=== PATIENT | female | born 1930 | race Caucasian/White ===

== ENCOUNTER 2018-05-17 19:52 | Observation (INO) | payer MEDICARE, OTHER ==
[2018-05-17] MEDS ORDERED: MAG HYDROX/ALUMINUM HYD/SIMETH 30 ML UDC PO ONE (20:06)
--- NOTE | 2018-05-17 20:43 | ED Physician Documentation ---
Fall - HISTORIAN Historian: patient, spouse, paramedics - [facility] Stated Complaint: fall Chief Complaint: Fall Additional Information: Leaving [employer] and tripped over curb. L forehead hit the concrete and she landed in a prone position. Thinks she may have passed out for just a moment at the time of impact. Bystanders indicated she did not lose consciousness. Several recent falls she thinks related to her Parkinson's disease. 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 Has lac on forehead, skin tear right hand. Denies other injuries. Occurred just prior to arrival in ER. No other modifying factors or associated signs. - ROS CONST: no problems - PAST HX Past History: other (Parkinson's, HLD, anxiety, osteoporosis, HTN; CABG, Appy, Hysterectomy, cholecystectomy) Allergies/Adverse Reactions: Allergies Allergy/AdvReac Type Severity Reaction Status Date / Time Penicillins Allergy Intermediate Rash Verified 05/17/18 21:26 Home Medications: Ambulatory Orders Medication Instructions Recorded Alendronate Sodium [Fosamax] 70 mg PO WEEK 05/17/18 Cholecalciferol [Vitamin D-3] 1,000 unit PO D 05/17/18 Furosemide [Lasix] 40 mg PO D 05/17/18 Latanoprost [Xalatan] 1 drop EACHEYE D 05/17/18 Levothyroxine Sodium 75 mg PO D 05/17/18 Metoprolol Succinate [Toprol XL] 25 mg PO D 05/17/18 Nitroglycerin [Nitrostat] 0.4 mg SL PRN PRN 05/17/18 Omeprazole 20 mg PO D 05/17/18 Pramipexole Di-HCl [Pramipexole ER] 0.75 mg PO TID 05/17/18 Timolol Maleate [Timoptic] 1 drop DT D 05/17/18 Venlafaxine HCl [Venlafaxine HCl 150 mg PO D 05/17/18 ER] Warfarin Sodium [Coumadin] 5 mg PO D 05/17/18 - SOCIAL HX Smoking History: non-smoker - FAMILY HX Family History: no significant history - VITAL SIGNS Vital Signs: Vital Signs Temp Pulse Resp BP Pulse Ox 98.4 F 67 20 116/57 96 05/17/18 19:53 05/17/18 19:53 05/17/18 19:53 05/17/18 19:53 05/17/18 19:53 - REVIEWED ASSESSMENTS Nursing Assessment Reviewed: Yes Vitals Reviewed: Yes Progress - Progress Progress: Report Submission Date: May 17, 2018 8:27:32 PM CDT Patient Study Name: YOLY GARNER Date: May 17, 2018 8:11:05 PM CDT Modality Type: CT\SR Gender: F Description: CT BRAIN W/O CONTRAST : 32 Institution: [facility] Physician: KOBY VANG Computed tomography head without contrast History: Left orbit laceration Findings: Transverse brain sections are obtained without contrast revealing a left malar and preseptal periorbital contusion and laceration without globe rupture or orbital hemorrhage. Lens replacements are observed. 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 Moderate brain atrophy is present. There is no intracranial hemorrhage or acute loss of rodriguez- white differentiation. The skull and visualized facial bones are intact. Impression: 1. Left facial soft tissue contusion. 2. 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 3. Brain atrophy. Electronically signed on May 17, 2018 8:27:32 PM CDT by: Edison Leon Report Submission Date: May 17, 2018 9:53:44 PM CDT Patient Study Name: YOLY GARNER Date: May 17, 2018 9:30:20 PM CDT Modality Type: CT\SR Gender: F Description: CT C-SPINE W/O CONTRAS : 31 Institution: [facility] Physician: KOBY VANG Computed tomography cervical spine without contrast History: Neck pain after fall Findings: Transverse cervical spine sections are obtained without contrast. Pulmonary edema, air trapping, and focal left upper lobe atelectasis or scar are observed. Advanced multilevel bilateral facet arthropathy is present producing degenerative anterolisthesis at C4-5. Advanced C5-6 and C6-7 degenerative disc disease is observed. Advanced anterior C1-2 arthropathy is present. There is no fracture or paraspinal swelling. Impression: 1. Advanced multilevel cervical spondylosis without fracture. 2. Pulmonary edema, air trapping, and minimal left upper lobe atelectasis or scar. Electronically signed on May 17, 2018 9:53:44 PM CDT by: Edison Leon ED Results Lab/Radiology - Orders Orders: ED Orders Category Date Time Status Apply ice to affected area NOW Care 05/17/18 19:[address] BRAIN W/O CONTRAST Stat Exams 05/17/18 Taken CBC/PLATELET/DIFF Routine Lab 05/17/18 Ordered CMP [CMP] Routine Lab 05/17/18 Ordered PTINR [PT-INR] Routine Lab 05/17/18 Ordered UA [URINALYSIS] Routine Lab 05/17/18 Ordered Mag Hydrox/Aluminum Hyd/Simeth [Mylanta] Med 05/17/18 20:06 Discontinued 30 ml PO NOW ONE Fall Physical Exam - Physical Exam General Appearance: alert, moderate distress Head: trauma (2 cm lac above left eye brow, superficial with 2-3 mm avulsion of skin prosimally. Avulsion 3-4 mmf diameter distal to lacoozing blood) Neck: non-tender, trachea midline Eye: GRICELDA, EOMI, lids & conjunct. nml, subconjunctival hemorrhag (Left eye, medial canthus area) ENT: nml external inspection, no dental injury, airway nml (Mallampati 2) Resp/CVS: chest non-tender, breath sounds nml, heart sounds nml Abdomen: soft, normal bowel sounds Neuro: oriented x3, CN's nml as tested, sensation nml, motor nml, reflexes nml Skin: color nml (except as above), other (crescent shaped skin flap right dorsal hand, 4 cm in length, no bleeding) Back: normal inspection, no vertebral tenderness Extremities: atraumatic, pelvis stable, hips non-tender Joint: joints nml Discharge Clincal Impression: Fall Qualifiers: Encounter type: initial encounter Qualified Code(s): W19.XXXA - Unspecified fall, initial encounter Facial laceration Qualifiers: Encounter type: initial encounter Qualified Code(s): S01.81XA - Laceration without foreign body of other part of head, initial encounter Skin tear of right hand without complication Qualifiers: Encounter type: initial encounter Qualified Code(s): S61.411A - Laceration without foreign body of right hand, initial encounter Referrals: Primary Doctor,No [Primary Care Provider] - 2 Days Condition: Fair Disposition: ADMITTED INPATIENT Decision to Admit: [id number] Decision Time: 22:00
[2018-05-17 21:52] LABS: eGFR (Non-African) > 60
[2018-05-17] MEDS ORDERED: ACETAMINOPHEN 500 MG TABLET PO ONE (22:00)
[2018-05-17 23:21] LABS: BASO % 0.2 % (0.0-1.5); EOS % 3.5 % (0.0-6.8); MCH. 28.7 pg (28.0-34.0); MONOCYTE % 7.7 % (0.0-11.0); MONOCYTE ABS # 0.81 thou/uL (0.00-0.90); PLATELET COUNT 215 thou/uL (130-400)
[2018-05-17] MEDS ORDERED: PANTOPRAZOLE SODIUM 40 MG TABLET PO ONE (23:26)
[2018-05-17] MEDS ORDERED: NITROGLYCERIN 0.4 MG TAB.SUBL SL PRN (23:26)
[2018-05-18 00:47] VITALS: BMI 32.1
[2018-05-18] MEDS ORDERED: ACETAMINOPHEN 500 MG TABLET PO PRN (05:10)
[2018-05-18 06:26] LABS: APPEARANCE,URINE CLEAR (CLEAR); COLOR,URINE AMBER (YELLOW)
[2018-05-18 06:27] LABS: OCCULT BLOOD,URINE 2+ (NEGATIVE); PH URINE 5.5 (5.0 - 8.0)
--- NOTE | 2018-05-18 06:49 | Diagnostic Imaging Report ---
KOBY VANG [facility] [address] [facility] [address] [place] [phone] [id number] Report Submission Date: May 17, 2018 9:53:44 PM CDT Patient Study Name: YOLY GARNER Date: May 17, 2018 9:30:20 PM CDT Modality Type: CT\SR Gender: F Description: CT C-SPINE W/O CONTRAS : 31 Institution: [facility] Physician: KOBY VANG Computed tomography cervical spine without contrast History: Neck pain after fall Findings: Transverse cervical spine sections are obtained without contrast. Pulmonary edema, air trapping, and focal left upper lobe atelectasis or scar are observed. Advanced multilevel bilateral facet arthropathy is present producing degenerative anterolisthesis at C4-5. Advanced C5-6 and C6-7 degenerative disc disease is observed. Advanced anterior C1-2 arthropathy is present. There is no fracture or paraspinal swelling. Impression: 1. Advanced multilevel cervical spondylosis without fracture. 2. Pulmonary edema, air trapping, and minimal left upper lobe atelectasis or scar. Electronically signed on May 17, 2018 9:53:44 PM CDT by: Edison THOMAS
--- NOTE | 2018-05-18 06:52 | Diagnostic Imaging Report ---
KOBY VANG [facility] [address] [facility] [address] [place] [address]. [id number] Report Submission Date: May 17, 2018 8:27:32 PM CDT Patient Study Name: YOLY GARNER Date: May 17, 2018 8:11:05 PM CDT Modality Type: CT\SR Gender: F Description: CT BRAIN W/O CONTRAST : 31 Institution: [facility] Physician: KOBY VANG Computed tomography head without contrast History: Left orbit laceration Findings: Transverse brain sections are obtained without contrast revealing a left malar and preseptal periorbital contusion and laceration without globe rupture or orbital hemorrhage. Lens replacements are observed. 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 Moderate brain atrophy is present. There is no intracranial hemorrhage or acute loss of rodriguez- white differentiation. The skull and visualized facial bones are intact. Impression: 1. Left facial soft tissue contusion. 2. 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 3. Brain atrophy. Electronically signed on May 17, 2018 8:27:32 PM CDT by: Edison THOMAS
[2018-05-18] MEDS ORDERED: LEVOTHYROXINE SODIUM 25 MCG TABLET PO SCH (07:00)
[2018-05-18] MEDS ORDERED: PANTOPRAZOLE SODIUM 40 MG TABLET PO SCH (07:00)
[2018-05-18] MEDS ORDERED: LATANOPROST 0.005% OPTH DROP OP SCH (09:00)
[2018-05-18] MEDS ORDERED: SALINE FLUSH 10 ML DISP.SYRIN IV SCH (09:00)
[2018-05-18] MEDS ORDERED: TIMOLOL MALEATE 0.5% OPTH OP SCH (09:00)
[2018-05-18] MEDS ORDERED: FUROSEMIDE 40 MG TABLET PO SCH (09:00)
[2018-05-18] MEDS ORDERED: VENLAFAXINE HCL 37.5 MG CAP.ER.24H PO SCH (09:00)
[2018-05-18] MEDS ORDERED: CHOLECALCIFEROL (VIT D3) 1,000 UNIT TABLET PO SCH (09:00)
[2018-05-18] MEDS ORDERED: WARFARIN SODIUM 5 MG TABLET PO SCH (09:00)
[2018-05-18] MEDS ORDERED: METOPROLOL SUCCINATE 50 MG TAB.ER.24H PO SCH (09:00)
--- NOTE | 2018-05-18 09:50 | Discharge Summary ---
Discharge Summary - Discharge Sumary History of Present Illness: Leaving [employer] [address] [employer] and tripped over curb. L forehead hit the concrete and she landed in a prone position. Thinks she may have passed out for just a moment at the time of impact. Bystanders indicated she did not lose consciousness. Several recent falls she thinks related to her Parkinson's disease. On Coumadin as she has had CABG in the past. Has lac on forehead, skin tear right hand. Denies other injuries. Occurred just prior to arrival in ER. No other modifying factors or associated signs. Patient was seen in the ED and because of comorbity admitted for observation. Condition at Discharge: Stable Home Medications: Ambulatory Orders Medication Instructions Recorded Alendronate Sodium [Fosamax] 70 mg PO WEEK 05/17/18 Alprazolam [Xanax] 0.25 mg PO HS PRN 05/17/18 Atorvastatin Calcium 40 mg PO HS 05/17/18 Cholecalciferol [Vitamin D-3] 1,000 unit PO D 05/17/18 Furosemide [Lasix] 20 mg PO 12 05/17/18 Furosemide [Lasix] 40 mg PO D 05/17/18 Latanoprost [Xalatan] 1 drop EACHEYE D 05/17/18 Levothyroxine Sodium 75 mg PO D 05/17/18 Metoprolol Succinate [Toprol XL] 25 mg PO D 05/17/18 Nitroglycerin [Nitrostat] 0.4 mg SL PRN PRN 05/17/18 Omeprazole 20 mg PO D 05/17/18 Pramipexole Di-HCl [Pramipexole ER] 0.75 mg PO TID 05/17/18 Timolol Maleate [Timoptic] 1 drop DT D 05/17/18 Venlafaxine HCl [Venlafaxine HCl 150 mg PO D 05/17/18 ER] Warfarin Sodium [Coumadin] 5 mg PO D 05/17/18 Acetaminophen [Tylenol Extra 1,000 mg PO Q8 PRN tablet 05/18/18 Strength] Consultations this Visit: None Procedures this Visit: None Allergies/Adverse Reactions: Allergies Allergy/AdvReac Type Severity Reaction Status Date / Time Penicillins Allergy Intermediate Rash Verified 05/17/18 21:26 Discharge Summary: Patient did well during her observations day. Patient did not have any further falls. Patient was seen by physical therapy. Patient's mental status remains stable.At the time to discharge was felt that the patient could be discharged safely at home. - Final Diagnosis (1) Parkinson disease Problems: stable (2) Facial laceration Problems: stable
[2018-05-18 11:00] VITALS: BP 121/62
== END 2018-05-18 12:25 | disposition home or self-care (01) ==
LOC: ED 19:52 → SOUTH 22:59
PROVIDERS: ADMIT Nurse Practitioner; ATTEND Nurse Practitioner
DX: S61.411A Laceration without foreign body of right hand, initial encounter (principal); S01.81XA Laceration without foreign body of other part of head, initial encounter; W17.89XA Other fall from one level to another, initial encounter; Y93.9 Activity, unspecified; Y92.481 Parking lot as the place of occurrence of the external cause; Y99.9 Unspecified external cause status; G20 Parkinson's disease; I10 Essential (primary) hypertension; Z95.1 Presence of aortocoronary bypass graft; Z79.01 Long term (current) use of anticoagulants; M54.2 Cervicalgia; E78.5 Hyperlipidemia, unspecified
CPT/HCPCS: 70450; 72125; 80053; 81002; 85025; 85610; G0378; 99218; 99224; S1016